=== PATIENT | female | born 1975 | race Caucasian/White ===

== ENCOUNTER → 2017-03-17 | Outpatient (CLI) | payer OTHER | END | disposition home or self-care (01) | LOC: NUC 09:04 | DX: M41.85 Other forms of scoliosis, thoracolumbar region (principal); M89.9 Disorder of bone, unspecified; Z17.1 Estrogen receptor negative status [ER-] | CPT/HCPCS: 78306; A9503 ==

== ENCOUNTER → 2017-08-09 | Outpatient (CLI) | payer OTHER | END | disposition home or self-care (01) | LOC: CDC 14:31 | DX: Z01.810 Encounter for preprocedural cardiovascular examination (principal); C50.412 Malignant neoplasm of upper-outer quadrant of left female breast | CPT/HCPCS: 93000 ==

== ENCOUNTER 2017-09-08 06:01 | Day surgery (SDC) | payer OTHER ==
[~2017-09-08] VITALS: Ht 167.6 cm; Wt 68.0 kg
[~2017-09-08 06:01] MED LIST: K-DUR20 MEQ PO; MAGNESIUM200 MG PO; PRENATAL TABLE1 EAC3 PO; PULMICORT FLE180 MCG IH
[2017-09-08 06:57] VITALS: BP 114/65
[2017-09-08 18:05] VITALS: BP 108/64
[2017-09-08 19:47] VITALS: BP 125/77
[2017-09-08 23:28] VITALS: BP 108/58
[2017-09-09 04:08] VITALS: BP 130/70
[2017-09-09 06:43] LABS: HEMATOCRIT 37.6 % (36.0-46.0); HEMOGLOBIN 12.7 G/DL (11.9-15.5); MCH 33.2 PG (29.0-34.0); MCHC 33.8 G/DL (30.0-36.0); MCV 98.2 FL (83-99); PLATELET COUNT 174 K/uL (156-360); RBC DIS.WIDTH-CV 11.6 % (11.8-14.6); RBC DIS.WIDTH-SD 41.4 % (39-53); RED BLOOD COUNT 3.83 M/uL (3.80-5.20); WHITE BLOOD COUNT 5.5 K/uL (4.1-10.2)
[2017-09-09 08:37] VITALS: BP 127/62
[2017-09-09 12:01] VITALS: BP 115/61
[2017-09-09] MEDS ORDERED: DIAZEPAM5 MG PO (13:22)
[2017-09-09] MEDS ORDERED: KEFLEX500 MG PO (13:22)
[2017-09-09] MEDS ORDERED: ENDOCET 5-3251 EACH PO (13:22)
== END 2017-09-09 14:38 | disposition home or self-care (01) ==
LOC: SDC 06:01 → NUC 08:00 → 2SOUTH 14:19 → 2EAST 14:19 → 2SOUTH 14:19 → ENRESERV 14:22 → 2EAST 16:58
PROVIDERS: Surgery
PROC: 0HHV0NZ Insertion of Tissue Expander into Bilateral Breast, Open Approach (ICD-10-PCS; principal; 2017-09-08)
PROC: 0HBV0ZZ Excision of Bilateral Breast, Open Approach (ICD-10-PCS; principal; 2017-09-08)
PROC: 07B50ZX Excision of Right Axillary Lymphatic, Open Approach, Diagnostic (ICD-10-PCS; principal; 2017-09-08)
PROC: 07B60ZX Excision of Left Axillary Lymphatic, Open Approach, Diagnostic (ICD-10-PCS; principal; 2017-09-08)
DX: C50.912 Malignant neoplasm of unspecified site of left female breast (principal); J45.909 Unspecified asthma, uncomplicated; Z88.1 Allergy status to other antibiotic agents; Z91.040 Latex allergy status; Z17.1 Estrogen receptor negative status [ER-]
CPT/HCPCS: 78195; 78999; 81025; 85027; 88305; 88307; 94640; 94640 76; A9541; G0378; J0131; J0330; J0690; J1170; J1200; J2250; J2270; J2405; J2710; J3010; J3480; J7643; Q0175; S0020